=== PATIENT | male | born 1960 | race Caucasian/White ===

== ENCOUNTER 2016-10-18 23:35 | Emergency (ER) | payer MEDICARE, MEDICAID ==
[~2016-10-18] VITALS: Ht 167.6 cm; Wt 81.6 kg
[~2016-10-18 23:35] MED LIST: ATENOLOL50 MG PO; LISINOPRIL40 MG PO
[2016-10-19 00:01] VITALS: BP 158/90
--- NOTE | 2016-10-19 01:46 | NUR ---
Patient ambulated to bed 04.
--- NOTE | 2016-10-19 02:10 | NUR ---
PATIENT PRESENTS TO ED WITH ABSCESS ON HEAD . PT DENIES N/V/D; SKIN IS PINK/WARM/DRY; AAOX4 WITH EVEN AND STEADY GAIT; LUNGS CLEAR BL; HR EVEN AND REGULAR; PT DENIES ANY FEVER, CP, SOB, OR COUGH AT THIS TIME; PATIENT STATES PAIN OF 8/10 AT THIS TIME; VSS; PATIENT POSITIONED FOR COMFORT; HOB ELEVATED; BEDRAILS UP X2; BED DOWN. ER MD MADE AWARE OF PT STATUS.
--- NOTE | 2016-10-19 02:15 | NUR ---
Dr. Aggarwal evaluating patient at bedside.
[2016-10-19 02:19] VITALS: BP 166/100
== END 2016-10-19 02:19 | disposition home or self-care (01) ==
LOC: MED 23:35
DX: S00.01XA Abrasion of scalp, initial encounter (principal); I10 Essential (primary) hypertension; X58.XXXA Exposure to other specified factors, initial encounter; Y93.89 Activity, other specified; Y92.89 Other specified places as the place of occurrence of the external cause; Y99.8 Other external cause status

== ENCOUNTER 2019-12-04 22:04 | Emergency (ER) | payer MEDICAID, MEDICARE, OTHER ==
[~2019-12-04] VITALS: Ht 170.2 cm; Wt 81.6 kg
--- NOTE | 2019-12-04 22:04 | NUR ---
PT [facility] BLS. TAKEN TO BED 7
[2019-12-04 22:10] VITALS: BP 160/97
--- NOTE | 2019-12-04 22:18 | NUR ---
59 YEAR OLD MALE COMPLAINS OF ABSCESS TO LEFT CHEEK ON FACE X MORNING. PT STATES THAT HE HAS HAD VERTIGO AND A PREVIOUS ABSCESS ON FACE BEFORE THAT NEEDED SURGERY IN THE PAST. PT DENIES SOB, CP, N/V/D. PT AOX4, BREATHING EVEN AND UNLABORED, SKIN WARM AND DRY. BED IN LOWEST POSITION, LOCKED, BED RAIL UPX1. PMH - HTN ALLERGIES - NKA
--- NOTE | 2019-12-04 22:24 | NUR ---
Dr. Tony examining patient.
[2019-12-04 22:45] LABS: BASOPHILS # (AUTO) 0.1 K/uL (0.00-0.22); BASOPHILS % (AUTO) 0.5 % (0.0-2.0); EOSINOPHILS # (AUTO) 0.1 K/uL (0-0.4); EOSINOPHILS % (AUTO) 0.4 % (0.0-4.0); LYMPHOCYTES # (AUTO) 0.8 K/uL (2.0-11.5); MEAN CORPUSCULAR HEMOGLOBIN 31 pg (27-31); MEAN CORPUSCULAR HGB CONC 34 g/dL (33-37); MONOCYTES # (AUTO) 0.8 K/uL (0.8-1.0); MONOCYTES % (AUTO) 6.3 % (1.7-9.3); NEUTROPHILS # (AUTO) 11.3 K/uL (1.8-7.7); NEUTROPHILS % (AUTO) 86.6 % (42.2-75.2); PLATELET COUNT (AUTO) 197 K/uL (140-450); RED CELL DISTRIBUTION WIDTH 13.9 % (11.6-13.7)
--- NOTE | 2019-12-04 22:45 | NUR ---
CONSENT SIGNED FOR CT SCAN
[2019-12-04 23:01] LABS: ANION GAP 13.3 (8-16); CARBON DIOXIDE 26.8 mmol/L (21-32); CREATININE 1.1 mg/dL (0.6-1.3); POTASSIUM 4.1 mmol/L (3.5-5.1)
[2019-12-04 23:03] LABS: LYMPHOCYTES % (AUTO) 6.2 % (20.5-51.1)
--- NOTE | 2019-12-04 23:05 | NUR ---
PT TO CT XRAY. TECH AT THE BEDSIDE.
--- NOTE | 2019-12-04 23:19 | NUR ---
PT BACK FROM CT XRAY.
--- NOTE | 2019-12-04 23:19 | NUR ---
PT RETURN FROM CT
--- NOTE | 2019-12-04 23:37 | NUR ---
PT WANTED WATER/GIVEN /WELL TOLERATED
[2019-12-05] MEDS ORDERED: KETOROLAC 30 MG/ML VIAL IVP ONE (00:10)
[2019-12-05] MEDS ORDERED: NACL 0.9% 1,000 ML IV ONE (00:10)
--- NOTE | 2019-12-05 00:24 | NUR ---
pt due meds given and no reaction noted.
--- NOTE | 2019-12-05 00:40 | NUR ---
PT ALERT AND AWAKE, BREAHTING EVEN AND UNLABORED
[2019-12-05] MEDS ORDERED: MORPHINE SULFATE 4 MG/ML SYR IVP ONE (00:50)
--- NOTE | 2019-12-05 01:20 | NUR ---
Betty vazquez in ED - 12/05/19 at 0120 by MEDJJ PT AMBULATED TO BATHROOM EVEN AND STEADY GAIT WITH WALKER
[2019-12-05 01:25] VITALS: BP 173/93
--- NOTE | 2019-12-05 01:25 | NUR ---
Patient discharged with v/s stable. Written and verbal after care instructions abnout cellulitis given and explained. Patient alert, oriented and verbalized understanding of instructions. Ambulatory with steady gait. All questions addressed prior to discharge. ID band removed. Patient advised to follow up with PMD. Rx of ibuprofen and keflex given. Patient educated on indication of medication including possible reaction and side effects. Opportunity to ask questions provided and answered. Pt given number for clinical social worker to call in morning.
== END 2019-12-05 01:25 | disposition home or self-care (01) ==
LOC: MED 22:04
DX: R22.1 Localized swelling, mass and lump, neck (principal); F17.210 Nicotine dependence, cigarettes, uncomplicated; I10 Essential (primary) hypertension
CPT/HCPCS: 36415; 70491; 80048; 85025; 87040; 96374; 96375; 99285; J1885; J2270; J7030; Q9967

== ENCOUNTER 2019-12-07 18:09 | Emergency (ER) | payer OTHER ==
[~2019-12-07] VITALS: Ht 170.2 cm; Wt 87.1 kg
[2019-12-07 18:18] VITALS: BP 129/83
--- NOTE | 2019-12-07 18:24 | NUR ---
PT AMBULATED TO BED 4, STEADY GAIT.
--- NOTE | 2019-12-07 18:31 | NUR ---
59 Y/O MALE PRESENTED TO ED C/O FACIAL SWELLING X 2 DAYS. PT STATES HE WAS AT [facility] ON 12/03 FOR NECK ABCESS AND WAS GIVEN RX KEFLEX. PT STATES HE GOT THE KEFLEX FILLED WHEN HE LEFT THE ER. PT STARTED KEFLEX IMMEDIATELY AND HAS BEEN CONTINUING TAKING THE MEDICATION. PT STATES ON 12/04 HIS FACE STARTED TURNING RED , SWELLING , AND TENDER TO TOUCH. PT DENIES SOB. PT BREATHING EVEN AND UNLABORED. OBSERVED FACIAL SWELLING ON FOREHEAD AND PERIORBITAL SWELLING. PT STATES HE HAS NO KNOWN ALLERGIES AND HE HAS TAKEN KEFLEX BEFORE AND NEVER HAD A REACTION. PT DENIES USING ANY NEW LOTION OR EATING ANY NEW FOOD. PT STATES HE IS WORRIED IT MIGHT BE A REACTION FROM AN INFESTATION OF MICE/RATS IN HIS HOME. PMH: HTN
--- NOTE | 2019-12-07 19:08 | NUR ---
RECEIVED REPORT FROM AMANDA MELENDEZ FOR CONTINIUATION OF CARE.
--- NOTE | 2019-12-07 19:08 | NUR ---
REPORT GIVEN TO DAGO FOR TRANSFER OF CARE.
--- NOTE | 2019-12-07 19:13 | NUR ---
PT RESTING IN BED, SITTING UPRIGHT. NO C/O OF PAIN AT THIS TIME. RR EVEN AND UNLABORED. BED IN LOWEST POSITION, SIDE RAIL UP X1. WILL CONTINUE TO MONITOR.
--- NOTE | 2019-12-07 19:22 | NUR ---
DANITA OWEN AT BEDSIDE EVALUATING PT.
[2019-12-07] MEDS ORDERED: predniSONE 20 MG TAB PO ONE (19:30)
[2019-12-07 20:03] VITALS: BP 129/83
--- NOTE | 2019-12-07 20:04 | NUR ---
Patient discharged with v/s stable. Written and verbal after care instructions given and explained. Patient alert, oriented and verbalized understanding of instructions. Ambulatory with steady gait. All questions addressed prior to discharge. ID band removed. Patient advised to follow up with PMD. Rx of LORATIDINE, PREDNISONE,BENEDRYL given. Patient educated on indication of medication including possible reaction and side effects. Opportunity to ask questions provided and answered.
== END 2019-12-07 20:03 | disposition home or self-care (01) ==
LOC: MED 18:09
DX: T78.49XA Other allergy, initial encounter (principal); I10 Essential (primary) hypertension
CPT/HCPCS: 99283; J7512